=== PATIENT | female | born 1970 | race American Indian/Alaskan Native ===

== ENCOUNTER 2017-08-01 17:05 | Emergency (ER) | payer SELFPAY ==
--- NOTE | 2017-08-01 17:48 | Emergency Department Report ---
Chief Complaint: Headache Stated Complaint: HEADACHE 30 DAYS + Time Seen by Provider: 08/01/17 17:47 - HPI History of Present Illness: Patient here reports that she's been having headache for 30 days. She said headache is located to the back of her head and her druze. Patient blood pressure is 217/113 in triage and rechecked in 161/105 but patient insisted that she does not have high blood pressure also in her record shows she was then Norvasc 2.5 mg and 05/17/2015. Patient says she takes her blood pressure daily and it's usually 128-132/80-90. She denies any nausea or vomiting and says she is concerned because she is having blurred vision. She is saying that is related to her sinus tachycardia she has thick yellow nasal discharge. Denies any fever or chills. Denies any neck stiffness. Denies any head trauma. - ROS Review of Systems: All systems are negative unless stated in HPI above - Exam Vital Signs: Vital Signs 08/01/17 17:21 Temperature 98.8 F Pulse Rate 72 Respiratory 18 Rate Blood Pressure 217/113 O2 Sat by Pulse 100 Oximetry Physical Exam: General: This is a 47-year-old female well-nourished well-developed in no acute distress. Mini neurological: GCS of 15, speech is clear and fluid, no facial drooping. Gait is normal. Patient alert and oriented 3 MSE screening note: Focused history and physical exam performed. Due to findings the following was ordered: ED Medical Decision Making - Medical Decision Making MDM: Patient screened by provider in triage area. Appropriate protocol initiated and patient to be seen in main ED by ED Disposition for MSE Condition: Stable
[2017-08-01 18:16] LABS: Basophils % (Auto) 0.7 % (0.0-1.8); Hematocrit 37.7 % (30.3-42.9); Hemoglobin 11.7 gm/dl (10.1-14.3); Mean Corpuscular HGB Conc 31 % (30-34); Mean Corpuscular Volume 77 fl (79-97); Platelet Count 352 K/mm3 (140-440); Red Blood Count 4.91 M/mm3 (3.65-5.03); Red Cell Distribution Width 13.9 % (13.2-15.2); White Blood Count 8.9 K/mm3 (4.5-11.0)
[2017-08-01 18:31] LABS: Bilirubin,Urine NEG (Negative); Blood,Urine NEG (Negative); Ketones,Urine NEG (Negative); Leukocyte Esterase,Urine NEG (Negative); Mucus,Urine FEW /HPF; Nitrite,Urine NEG (Negative); Protein,Urine <15 mg/dL mg/dL (Negative); RBC,Urine < 1.0 /HPF (0.0-6.0); Urobilinogen,Urine < 2.0 mg/dL (<2.0)
[2017-08-01 18:32] LABS: Mean Corpuscular Hemoglobin 24 pg (28-32)
[2017-08-01 18:33] LABS: Anion Gap 16 mmol/L; BUN/Creatinine Ratio 13; Blood Urea Nitrogen 8 mg/dL (7-17); Carbon Dioxide 24 mmol/L (22-30); Chloride 99.7 mmol/L (98-107); Glucose 89 mg/dL (65-100); Potassium 4.4 mmol/L (3.6-5.0); Sodium 135 mmol/L (137-145)
--- NOTE | 2017-08-01 19:12 | Cat Scan Report ---
FINAL REPORT PROCEDURE: CT HEAD/BRAIN WO CON TECHNIQUE: Computerized tomography of the head was performed without contrast material. HISTORY: SHOEMAKER x 30 days, new COMPARISON: No prior studies are available for comparison. FINDINGS: Mucosal thickening and hyperdensity are seen filling the visualized portions of the paranasal sinuses. Findings could be due to changes of chronic sinusitis but consideration should be given to fungal sinusitis. There is thinning of the medial wall of the right orbit likely due to pressure erosion from the sinusitis. There is likely intracranial extension of sinusitis into the right supraclinoid region. There is possible lack of bony integrity between the carotid canals and the posterior rucker of the sphenoid sinuses, also. Mastoid air cells and middle ears appear clear. Cerebral ventricles are normal in size. No CVA is seen. No acute intracranial hemorrhage or mass effect is seen. IMPRESSION: Prominent changes of chronic sinusitis or fungal sinusitis are suggested. There is possible intracranial extension of sinusitis in the right supraclinoid region. Further evaluation with CT of the paranasal sinuses is recommended to evaluate bony integrity. Contrast-enhanced MRI of the brain is recommended to assess for meningeal spread of infection.
[2017-08-01] MEDS ORDERED: UNASYN/NS 3 GM/100 ML 3 GM/100 ML BAG IV ONE (22:06)
[2017-08-01] MEDS ORDERED: TORADOL IV ONE (22:06)
[2017-08-01] MEDS ORDERED: NACL 0.9% 500 ML 500 ML ONE (22:18)
[2017-08-01 22:33] VITALS: BP 167/88
--- NOTE | 2017-08-01 22:44 | Emergency Department Report ---
ED Headache HPI - General Chief Complaint: Headache Stated Complaint: HEADACHE 30 DAYS + Time Seen by Provider: 08/01/17 17:47 Source: patient Exam Limitations: no limitations - History of Present Illness Initial Comments: 47-year-old female with no significant past medical history presents to the hospital with complaints of chronic headache and purulent nasal drainage. Patient states she has had sinus issues and intermittent headaches since September 2016. Since March headaches have been worse the patient has noticed yellow purulent nasal drainage. 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 Patient presents here because she continues to have worsening headache which is now generalized and purulent yellow nasal drainage. Patient presents with elevated blood pressure but states she does not have a history of hypertension and at home her blood pressure is normal. She states her blood pressure typically elevated when she is anxious and in the hospital. PMD none. No complaints of fever, neck pain/stiffness, nausea, vomiting, blurry vision, or focal weakness. Pain currently 5/10 in intensity and worse with lying supine. Improvement when sitting up Allergies/Adverse Reactions: Allergies No Known Allergies Allergy (Verified 08/01/17 17:21) ED Review of Systems ROS: Stated complaint: HEADACHE 30 DAYS + Other details as noted in HPI Comment: All other systems reviewed and negative Other: Constitutional: No fevers chills Eyes: No eye pain visual changes ENT: No ear pain or throat pain Neck: Denies pain Respiratory: Denies cough wheezing shortness of breath Cardiovascular: Denies chest pain, palpitations, syncope GI: Denies abdominal pain, nausea, vomiting, diarrhea : Denies dysuria, Musculoskeletal: Denies back pain, Skin: Denies rash, lesions, erythema Neurologic: As per HPI Psychiatric: Denies suicidal ideation, hallucinations ED Past Medical Hx - Past Medical History Previous Medical History?: No - Surgical History Past Surgical History?: Yes Additional Surgical History: ectopic (not sure which fallopian tube removed), milk duct removed L breast - Social History Smoking Status: Never Smoker Substance Use Type: None ED Physical Exam - General Limitations: No Limitations - Other Other exam information: General: No limitations, patient is alert in no acute distress Head exam: Atraumatic, normocephalic Eyes exam: Normal appearance ENT: Moist mucous membrane, normal oropharynx, yellow drainage noted in the right nostril, nasal congestion. Mild maxillary sinus tenderness Neck exam: Normal inspection, full range of motion, no meningismus nontender Respiratory exam: Clear to auscultation bilateral, no wheezes, rales, crackles Cardiovascular: Normal rate and rhythm, normal heart sounds Abdomen: Soft, nondistended, and nontender, with normal bowel sounds, no rebound, or guarding Extremity: Full range of motion normal inspection no deformity Back: Normal Inspection, full range of motion, no tenderness Neurologic: Alert, oriented x3, cranial nerves intact, no motor or sensory deficit Psychiatric: normal affect, normal mood Skin: Warm, dry, intact ED Course Vital Signs 08/01/17 08/01/17 08/01/17 17:21 19:09 22:28 Temperature 98.8 F Pulse Rate 72 68 Respiratory 18 18 18 Rate Blood Pressure 217/113 Blood Pressure 180/109 [Right] O2 Sat by Pulse 100 Oximetry 08/01/17 08/01/17 22:32 22:35 Temperature 98.8 F Pulse Rate 72 Respiratory 20 18 Rate Blood Pressure Blood Pressure 167/88 [Right] O2 Sat by Pulse 100 100 Oximetry - Reevaluation(s) Reevaluation #1: 08/01/17 22:59 Unasyn and Toradol ordered ED Medical Decision Making - Lab Data Result diagrams: 08/01/17 18:00 08/01/17 18:05 Lab Results 08/01/17 08/01/17 08/01/17 Range/Units 18:00 18:05 18:05 WBC 8.9 (4.5-11.0) K/mm3 RBC 4.91 (3.65-5.03) M/mm3 Hgb 11.7 (10.1-14.3) gm/dl Hct 37.7 (30.3-42.9) % MCV 77 L (79-97) fl MCH 24 L (28-32) pg MCHC 31 (30-34) % RDW 13.9 (13.2-15.2) % Plt Count 352 (140-440) K/mm3 Lymph % (Auto) 29.5 (13.4-35.0) % [place] % (Auto) 8.9 H (0.0-7.3) % Eos % (Auto) 8.0 H (0.0-4.3) % Baso % (Auto) 0.7 (0.0-1.8) % Lymph # 2.6 (1.2-5.4) K/mm3 [place] # 0.8 (0.0-0.8) K/mm3 Eos # 0.7 H (0.0-0.4) K/mm3 Baso # 0.1 (0.0-0.1) K/mm3 Seg Neutrophils % 52.9 (40.0-70.0) % Seg Neutrophils # 4.7 (1.8-7.7) K/mm3 Sodium 135 L (137-145) mmol/L Potassium 4.4 (3.6-5.0) mmol/L Chloride 99.7 (98-107) mmol/L Carbon Dioxide 24 (22-30) mmol/L Anion Gap 16 mmol/L BUN 8 (7-17) mg/dL Creatinine 0.6 L (0.7-1.2) mg/dL Estimated GFR > 60 ml/min BUN/Creatinine Ratio 13 % Glucose 89 (65-100) mg/dL Calcium 9.0 (8.4-10.2) mg/dL HCG, Qual Negative (Negative) Urine Color (Yellow) Urine Turbidity (Clear) Urine pH (5.0-7.0) Ur Specific [place] (1.003-1.030) Urine Protein (Negative) mg/dL Urine Glucose (UA) (Negative) mg/dL Urine Ketones (Negative) mg/dL Urine Blood (Negative) Urine Nitrite (Negative) Urine Bilirubin (Negative) Urine Urobilinogen (<2.0) mg/dL Ur Leukocyte Esterase (Negative) Urine WBC (Auto) (0.0-6.0) /HPF Urine RBC (Auto) (0.0-6.0) /HPF U Epithel Cells (Auto) (0-13.0) /HPF Urine Mucus /HPF 08/01/17 Range/Units Unknown WBC (4.5-11.0) K/mm3 RBC (3.65-5.03) M/mm3 Hgb (10.1-14.3) gm/dl Hct (30.3-42.9) % MCV (79-97) fl MCH (28-32) pg MCHC (30-34) % RDW (13.2-15.2) % Plt Count (140-440) K/mm3 Lymph % (Auto) (13.4-35.0) % [place] % (Auto) (0.0-7.3) % Eos % (Auto) (0.0-4.3) % Baso % (Auto) (0.0-1.8) % Lymph # (1.2-5.4) K/mm3 [place] # (0.0-0.8) K/mm3 Eos # (0.0-0.4) K/mm3 Baso # (0.0-0.1) K/mm3 Seg Neutrophils % (40.0-70.0) % Seg Neutrophils # (1.8-7.7) K/mm3 Sodium (137-145) mmol/L Potassium (3.6-5.0) mmol/L Chloride (98-107) mmol/L Carbon Dioxide (22-30) mmol/L Anion Gap mmol/L BUN (7-17) mg/dL Creatinine (0.7-1.2) mg/dL Estimated GFR ml/min BUN/Creatinine Ratio % Glucose (65-100) mg/dL Calcium (8.4-10.2) mg/dL HCG, Qual (Negative) Urine Color Yellow (Yellow) Urine Turbidity Clear (Clear) Urine pH 5.0 (5.0-7.0) Ur Specific [place] 1.017 (1.003-1.030) Urine Protein <15 mg/dl (Negative) mg/dL Urine Glucose (UA) Neg (Negative) mg/dL Urine Ketones Neg (Negative) mg/dL Urine Blood Neg (Negative) Urine Nitrite Neg (Negative) Urine Bilirubin Neg (Negative) Urine Urobilinogen < 2.0 (<2.0) mg/dL Ur Leukocyte Esterase Neg (Negative) Urine WBC (Auto) 1.0 (0.0-6.0) /HPF Urine RBC (Auto) < 1.0 (0.0-6.0) /HPF U Epithel Cells (Auto) 12.0 (0-13.0) /HPF Urine Mucus Few /HPF - Radiology Data Radiology results: report reviewed CT head non-contrast: Prominent changes of chronic sinusitis or fungal sinusitis are suggested. Possible intracranial extension of the sinusitis into the right subclavian artery region. Further CT of the paranasal sinuses recommended. Contrast enhanced MRI of the brain is recommended - Medical Decision Making Patient has chronic sinusitis which has progressed and causing bony destruction. Further images recommended by radiologist. Case was discussed with ENT physician on-call [place] and patient has been accepted to transfer to [facility] ED for further evaluation. Patient received Unasyn and Toradol in the ED. - Differential Diagnosis sinsusitis, infection, intracranial lesion Critical Care Time: No Critical care attestation.: If time is entered above; I have spent that time in minutes in the direct care of this critically ill patient, excluding procedure time. ED Disposition Clinical Impression: Sinusitis, chronic, Purulent nasal discharge, Bone erosion, Elevated blood pressure reading Disposition: [id number]/TX-[id number] ANOTHER TYPE HLTHCARE Is pt being admited?: No Condition: Stable Referrals: PRIMARY CARE,MD [Primary Care Provider] - 3-5 Days Forms: Accompanied Note Time of Disposition: 22:20 (Dr Ramirez/ENT/[facility])
[2017-08-02] MEDS ORDERED: NACL 0.9% 500 ML 500 ML IV ONE (01:44)
== END 2017-08-02 00:27 | disposition other institution (70) ==
LOC: ED 17:05
DX: M85.80 Other specified disorders of bone density and structure, unspecified site (principal); J32.0 Chronic maxillary sinusitis; R03.0 Elevated blood-pressure reading, without diagnosis of hypertension
CPT/HCPCS: 36415; 70450; 80048; 81001; 84703; 85025; 96365; 96375; 99285; J0295; J1885; J7040

== ENCOUNTER 2017-10-26 02:05 | Emergency (ER) | payer OTHER ==
[2017-10-26 02:28] VITALS: BP 166/97
[2017-10-26] MEDS ORDERED: ASPIRIN PO ONE (02:29)
--- NOTE | 2017-10-26 02:54 | XRay Report ---
FINAL REPORT EXAM: XR CHEST ROUTINE 2V HISTORY: Shortness of breath TECHNIQUE: PA and lateral views of the chest were submitted. FINDINGS: Heart size and mediastinum appear normal. The lungs are clear. Pleural fluid is not seen. The bones and soft tissues do not show any acute changes. IMPRESSION: Negative chest.
[2017-10-26 03:21] LABS: Basophils # (Auto) 0.1 K/mm3 (0.0-0.1); Basophils % (Auto) 0.6 % (0.0-1.8); Eosinophils # (Auto) 0.6 K/mm3 (0.0-0.4); Eosinophils % (Auto) 5.7 % (0.0-4.3); Hematocrit 38.2 % (30.3-42.9); Hemoglobin 12.4 gm/dl (10.1-14.3); Lymphocytes # (Auto) 2.8 K/mm3 (1.2-5.4); Mean Corpuscular HGB Conc 32 % (30-34); Mean Corpuscular Volume 76 fl (79-97); Monocytes # (Auto) 0.8 K/mm3 (0.0-0.8); Monocytes % (Auto) 8.3 % (0.0-7.3); Platelet Count 301 K/mm3 (140-440); Red Blood Count 5.06 M/mm3 (3.65-5.03); Red Cell Distribution Width 13.4 % (13.2-15.2)
[2017-10-26 03:28] LABS: Mean Corpuscular Hemoglobin 24 pg (28-32)
[2017-10-26 03:31] LABS: Bilirubin,Urine NEG (Negative); Blood,Urine NEG (Negative); Color,Urine Colorless (Yellow); Mucus,Urine FEW /HPF; Nitrite,Urine NEG (Negative); Protein,Urine <15 mg/dL mg/dL (Negative); Urobilinogen,Urine < 2.0 mg/dL (<2.0); WBC,Urine < 1.0 /HPF (0.0-6.0)
[2017-10-26 03:58] LABS: BUN/Creatinine Ratio 20; Blood Urea Nitrogen 10 mg/dL (7-17); Calcium 9.2 mg/dL (8.4-10.2); Hemolysis Index 3
== END 2017-10-26 15:05 | disposition left against medical advice (07) ==
LOC: ED 02:05
DX: R07.9 Chest pain, unspecified (principal); Z53.21 Procedure and treatment not carried out due to patient leaving prior to being seen by health care provider
CPT/HCPCS: 36415; 71046; 80048; 81001; 84484; 84703; 85025; 93005; 93010